=== PATIENT | female | born 1945 | race Caucasian/White ===

== ENCOUNTER 2017-07-08 19:45 | Emergency (ER) | payer MEDICARE ==
[2017-07-08 20:18] VITALS: BP 148/57
[2017-07-08] MEDS ORDERED: Acetaminophen TAB* 325 MG PO ONE (20:31)
--- NOTE | 2017-07-08 21:55 | RAD ---
Indication: Right mid foot swelling and pain. The views of the right foot demonstrates no fracture. There is fusion between the first and second metatarsal with lucency around the hardware at the second metatarsal. Degenerative changes of the first metatarsal phalangeal joint is noted. IMPRESSION: Postoperative changes. Degenerative changes first metatarsophalangeal joint.
--- NOTE | 2017-07-08 21:57 | UC ---
Lower Extremity/Ankle HPI - HPI Summary HPI Summary: twisted right foot when she slipped off a stone stair this evening, with immediate pain and swelling and bruising in the lateral proximal foot. Past right bunionectomy - History of Current Complaint Chief Complaint: UCLowerExtremity Stated Complaint: RT FOOT INJ Time Seen by Provider: 07/08/17 20:31 Hx Obtained From: Patient Hx Last Menstrual Period: n/a Onset/Duration: Sudden Onset, Lasting Hours - 2 Severity Initially: Moderate Severity Currently: Moderate Pain Intensity: 7 Pain Scale Used: 0-10 Numeric Aggravating Factor(s): Standing, Ambulation Alleviating Factor(s): Rest, Elevation, OTC Meds - minimal relief with acetaminophen - Risk Factors Gout Risk Factors: Negative - Allergies/Home Medications Allergies/Adverse Reactions: Allergies Allergy/AdvReac Type Severity Reaction Status Date / Time Penicillins Allergy Rash Verified 07/08/17 20:18 Aspirin AdvReac Bleeding Verified 07/08/17 20:28 Ibuprofen AdvReac Bleeding Verified 07/08/17 20:28 Home Medications: Home Medications Bupropion HCl [Bupropion HCl Xl] 150 mg PO DAILY 07/08/17 [History Confirmed 02/15] Chlorthalidone 25 mg PO DAILY 07/08/17 [History Confirmed 07/08/17] Donepezil Hydrochloride 10 mg PO DAILY 07/08/17 [History Confirmed 07/08/17] QUEtiapine TAB* [SEROquel TAB*] 100 mg PO BEDTIME 07/08/17 [History Confirmed ] Venlafaxine ER (NF) [Effexor ER (NF)] 150 mg PO DAILY 07/08/17 [History Confirmed 07/08/17] Venlafaxine HCl [Venlafaxine HCl ER] 37.5 mg PO DAILY 07/08/17 [History Confirmed 07/08/17] hydrOXYzine HCL TAB* [Atarax 25 MG TAB*] 25 mg PO DAILY PRN 07/08/17 [History Confirmed 07/08/17] PMH/Surg Hx/FS Hx/Imm Hx - Additional Past Medical History Additional PMH: Protein C deficiency, on coumadin Previously Healthy: No Respiratory History: Other Other Respiratory History: hx of protein C deficiency, clotting Psychological History: Anxiety, Depression Other History Of: Anticoagulant Therapy - coumadin - Surgical History Surgical History: Yes Surgery Procedure, Year, and Place: Left shoulder Sx ? hysterectomy - Family History Known Family History: Positive: Cardiac Disease - father had [place] - Social History Occupation: Retired Lives: With Family - son lives with her Alcohol Use: None Substance Use Type: None Smoking Status (MU): Light Every Day Tobacco Smoker Type: Cigarettes Amount Used/How Often: 1/2 ppd Length of Time of Smoking/Using Tobacco: 50+ yrs Have You Smoked in the Last Year: Yes Household Exposure Type: Cigarettes - Immunization History Most Recent Influenza Vaccination: not this year Most Recent Tetanus Shot: over ten years ago Most Recent Pneumonia Vaccination: 2009 Review of Systems Constitutional: Negative Skin: Negative Eyes: Negative ENT: Negative Respiratory: Negative Cardiovascular: Negative Gastrointestinal: Negative Genitourinary: Negative Motor: Negative Neurovascular: Negative Musculoskeletal: Arthralgia Neurological: Negative Psychological: Other - hx of depression, controlled. Is Patient Immunocompromised?: No All Other Systems Reviewed And Are Negative: Yes Physical Exam Triage Information Reviewed: Yes Appearance: Pain Distress - moderate. Vital Signs: Initial Vital Signs Temp 98.6 F 07/08/17 20:08 Pulse 61 07/08/17 20:08 Resp 18 07/08/17 20:08 BP 148/57 07/08/17 20:08 Pulse Ox 100 07/08/17 20:08 Eye Exam: Normal Neck: Positive: Supple Respiratory: Positive: Lungs clear, Normal breath sounds Cardiovascular: Positive: RRR, No Murmur Musculoskeletal Exam: Other - large ecchymosis forming inferior to lateral malleolus, with mid foot pain. No tenderness over lateral malleolus. Musculoskeletal: Positive: ROM Limited @ - right ankle with almost full rom Neurological: Positive: Alert, Muscle Tone Normal Psychological Exam: Other - mildly depressed affect Skin Exam: Normal Diagnostics - Laboratory Diagnostic Studies Completed/Ordered: xray reading of SERGIO and Dr. Paul the same- -no fracture, degenerative change in first MTP, past bunionectomy. Lower Extremity Course/Dx - Course Course Of Treatment: CAM walker and crutches, ortho referral. acetaminophen for pain control (limited pain options due to warfarin and anti-psychotic) - Differential Dx/Diagnosis Differential Diagnosis/HQI/PQRI: Sprain, Strain Provider Diagnoses: sprain right mid foot and ankle. Discharge - Discharge Plan Condition: Stable Disposition: HOME Patient Education Materials: Foot Sprain (ED), Crutch Instructions (ED) Referrals: Brandi BRAY,Piedad Gay [Primary Care Provider] - Babatunde Spence MD [Medical Doctor] - Additional Instructions: Use acetaminophen for pain control. Pain will be controlled additionally by foot immobilization and ice and elevation. You have been referred to Dr. Spence for orthopedic evaluation, please call his office tomorrow to be seen within the next several days.
== END 2017-07-08 22:34 | disposition home or self-care (01) ==
LOC: UCCORT 19:45
DX: S93.691A Other sprain of right foot, initial encounter (principal); W10.9XXA Fall (on) (from) unspecified stairs and steps, initial encounter; Y92.9 Unspecified place or not applicable; M19.071 Primary osteoarthritis, right ankle and foot; D68.59 Other primary thrombophilia; Z79.01 Long term (current) use of anticoagulants; F41.9 Anxiety disorder, unspecified; F32.9 Major depressive disorder, single episode, unspecified; F17.210 Nicotine dependence, cigarettes, uncomplicated; Z88.6 Allergy status to analgesic agent; Z88.0 Allergy status to penicillin
CPT/HCPCS: 99213; A9270-GY; G0463

== ENCOUNTER 2019-07-12 16:25 | Emergency (ER) | payer MEDICARE ==
[2019-07-12 16:48] VITALS: BP 143/57
--- NOTE | 2019-07-12 17:27 | UC ---
UC General HPI - HPI Summary HPI Summary: 73-year-old woman comes in with chief complaint of neck pain and left-sided chest pain and thoracic and lumbar pain. Patient fell at her home in the evening of July 01, 2019 down some stairs approximately 3-4 feet in height of a fall. She is on blood thinner. She was evaluated early in the morning of July 02, 2019 at the [place] emergency department. She had a CT brain CT C- spine chest x-ray and left hip x-ray. None of these showed any acute fractures or acute disease processes. After the emergency room visit patient went home and had been improving but over the last several days her symptoms are getting worse with more pain in the left side of the chest and also in the back approximately at the level of the upper lumbar lower thoracic spine area. She' s also getting some right-sided neck pain that shoots into her right scapula. The back pain radiates to the left and right. Also patient's noticing some pain in both of her legs. Reports normal urination and bowels has not seen any blood in her urine. - History of Current Complaint Chief Complaint: UCGeneralIllness Stated Complaint: PT FELL RIB PAIN Hx Last Menstrual Period: n/a Pain Intensity: 8 - Allergy/Home Medications Allergies/Adverse Reactions: Allergies Allergy/AdvReac Type Severity Reaction Status Date / Time aspirin Allergy Bleeding Verified 07/12/19 16:38 ibuprofen Allergy Bleeding Verified 07/12/19 16:38 Penicillins Allergy Rash Verified 07/12/19 16:38 Home Medications: Home Medications Chlorthalidone 25 mg PO DAILY 07/12/19 [History Confirmed 07/12/19] Donepezil HCl 10 mg PO DAILY 07/12/19 [History Confirmed 07/12/19] Potassium Chloride 10 meq PO DAILY 07/12/19 [History Confirmed 07/12/19] Rivaroxaban TAB(*) [Xarelto 20 mg] 20 mg PO DAILY 07/12/19 [History Confirmed ] PMH/Surg Hx/FS Hx/Imm Hx Previously Healthy: Yes - patient is on Xarelto Cardiovascular History: Hypertension Respiratory History: COPD Other History Of: Anticoagulant Therapy - coumadin - Surgical History Surgical History: Yes Surgery Procedure, Year, and Place: Left shoulder Sx ? hysterectomy - Family History Known Family History: Positive: None, Cardiac Disease - father had [place] - Social History Alcohol Use: None Substance Use Type: None Smoking Status (MU): Light Every Day Tobacco Smoker Type: Cigarettes Amount Used/How Often: 1/2 ppd Length of Time of Smoking/Using Tobacco: 50+ yrs Have You Smoked in the Last Year: Yes Household Exposure Type: Cigarettes - Immunization History Most Recent Influenza Vaccination: not this year Most Recent Tetanus Shot: over ten years ago Most Recent Pneumonia Vaccination: 2009 Review of Systems All Other Systems Reviewed And Are Negative: Yes Constitutional: Positive: Other - see hpi Skin: Positive: Other - see hpi Eyes: Positive: Negative ENT: Positive: Negative Respiratory: Positive: Negative Cardiovascular: Positive: Chest Pain - see hpi Gastrointestinal: Positive: Other - see hpi Genitourinary: Negative: Hematuria Motor: Positive: Negative Neurovascular: Positive: Negative Musculoskeletal: Positive: Other: - see hpi Neurological: Positive: Negative Psychological: Positive: Negative Is Patient Immunocompromised?: No Physical Exam Triage Information Reviewed: Yes Appearance: Well-Appearing, Well-Nourished, Pain Distress - mild at rest, moderate with movement and exam Vital Signs: Initial Vital Signs Temp 98.3 F 07/12/19 16:44 Pulse 77 07/12/19 16:44 Resp 20 07/12/19 16:44 BP 143/57 07/12/19 16:44 Pulse Ox 100 07/12/19 16:44 Vital Signs Reviewed: Yes Eye Exam: Normal Eyes: Positive: Conjunctiva Clear Neck: Positive: Supple, Other: - Mild tenderness to palpation on the right side of the neck into the right upper scapula. Respiratory: Positive: Lungs clear, Normal breath sounds, No respiratory distress, Other: - Tender to palpation lateral aspect of left side of the chest. Cardiovascular: Positive: RRR Abdomen Description: Positive: Nontender Bowel Sounds: Positive: Present Musculoskeletal: Positive: Other: - Tender to palpation at approximately L1 level that when palpated in midline pain radiates bilaterally. Neurological: Positive: Alert Psychological: Positive: Age Appropriate Behavior Skin: Positive: Other - Ecchymosis left arm at IV site. Course/Dx - Course Course Of Treatment: In this patient who is on a blood thinner and getting worse rather than better after a fall I am unable to completely safely evaluate for internal bleeding and I recommended further evaluation in the emergency department. I spoke to the physician offset assistant press operator Leilani at the [place] emergency department - Diagnoses Provider Diagnosis: Left-sided chest pain, Neck pain, Thoracic back pain, Lumbar back pain Discharge ED - Sign-Out/Discharge Documenting (check all that apply): Patient Departure All imaging exams completed and their final reports reviewed: No Studies - Discharge Plan Condition: Stable Disposition: HOME-RECOMMEND TO ED Patient Education Materials: Chest Pain (ED), Thoracic Pain (ED), Back Pain (ED ), Neck Pain (ED) Referrals: Brandi BRAY,Piedad Gay [Primary Care Provider] - Additional Instructions: GO DIRECTLY TO THE EMERGENCY DEPARTMENT FOR FURTHER EVALUATION AND CARE. - Billing Disposition and Condition Condition: STABLE Disposition: Home-Recommend to ED
== END 2019-07-12 17:37 | disposition home health service (06) ==
LOC: UCCORT 16:25
DX: R07.9 Chest pain, unspecified (principal); M54.2 Cervicalgia; M54.6 Pain in thoracic spine; M54.5 Low back pain; J44.9 Chronic obstructive pulmonary disease, unspecified; I10 Essential (primary) hypertension; F17.210 Nicotine dependence, cigarettes, uncomplicated; Z88.6 Allergy status to analgesic agent; Z88.0 Allergy status to penicillin; Z79.899 Other long term (current) drug therapy; Z79.01 Long term (current) use of anticoagulants
CPT/HCPCS: 99212; G0463